=== PATIENT | female | born 1935 | race Two or more races ===

== ENCOUNTER → 2019-04-02 | Outpatient (CLI) | payer OTHER, BC | END | disposition home or self-care (01) | LOC: MRI 10:15 | DX: G30.1 Alzheimer's disease with late onset (principal) | CPT/HCPCS: 70551 ==

== ENCOUNTER 2019-10-25 15:13 | Outpatient (CLI) | payer OTHER, BC | END 2019-10-25 15:21 | disposition home or self-care (01) | LOC: RAD 15:13 → NUCLEAR 10-27 08:00 | PROVIDERS: ATTEND General Practice | DX: M79.605 Pain in left leg (principal) ==

== ENCOUNTER 2019-10-26 08:47 | Outpatient (CLI) | payer OTHER, BC | END 2019-10-26 08:56 | disposition home or self-care (01) | LOC: NUCLEAR 08:47 | PROVIDERS: ATTEND General Practice | DX: M79.605 Pain in left leg (principal); I83.021 Varicose veins of left lower extremity with ulcer of thigh; D68.8 Other specified coagulation defects; L98.8 Other specified disorders of the skin and subcutaneous tissue; I73.9 Peripheral vascular disease, unspecified ==

== ENCOUNTER 2019-10-27 08:30 | Outpatient (CLI) | payer OTHER, BC | END 2019-10-27 08:50 | disposition home or self-care (01) | LOC: NUCLEAR 08:30 | PROVIDERS: ATTEND General Practice | DX: M79.605 Pain in left leg (principal); I83.021 Varicose veins of left lower extremity with ulcer of thigh; D68.8 Other specified coagulation defects; L98.8 Other specified disorders of the skin and subcutaneous tissue ==

== ENCOUNTER 2020-10-31 00:34 | Emergency (ER) | payer OTHER, BC ==
[~2020-10-31] VITALS: Ht 162.6 cm; Wt 52.2 kg
[2020-10-31] MEDS ORDERED: ARICEPT10 MG (04:29)
== END 2020-10-31 04:40 | disposition home or self-care (01) ==
LOC: ER 00:34
DX: R53.81 Other malaise (principal); G30.8 Other Alzheimer's disease; F02.80 Dementia in other diseases classified elsewhere, unspecified severity, without behavioral disturbance, psychotic disturbance, mood disturbance, and anxiety; T65.891A Toxic effect of other specified substances, accidental (unintentional), initial encounter; Y92.89 Other specified places as the place of occurrence of the external cause

== ENCOUNTER 2020-11-12 02:04 | Emergency (ER) | payer OTHER, BC ==
[~2020-11-12] VITALS: Ht 160 cm; Wt 52.2 kg
[~2020-11-12 02:04] MED LIST: ARICEPT10 MG
== END 2020-11-12 04:24 | disposition home or self-care (01) ==
LOC: ER 02:04
DX: T65.891A Toxic effect of other specified substances, accidental (unintentional), initial encounter (principal); Y92.098 Other place in other non-institutional residence as the place of occurrence of the external cause

== ENCOUNTER 2021-11-02 17:55 | Emergency (ER) | payer OTHER, BC ==
[~2021-11-02] VITALS: Ht 160 cm; Wt 61.7 kg
[2021-11-02] MEDS ORDERED: CARDIZEM30 MG (18:20)
[2021-11-02] MEDS ORDERED: ELIQUIS2.5 MG (18:20)
== END 2021-11-03 01:46 | disposition home or self-care (01) ==
LOC: ER 17:55
DX: S70.01XA Contusion of right hip, initial encounter (principal); W18.30XA Fall on same level, unspecified, initial encounter; Y93.9 Activity, unspecified; Y92.89 Other specified places as the place of occurrence of the external cause; I10 Essential (primary) hypertension; Z91.030 Bee allergy status

== ENCOUNTER 2023-04-30 12:49 | Outpatient (CLI) | payer OTHER ==
[~2023-04-30 12:49] MED LIST changes: +CARDIZEM30 MG; +ELIQUIS2.5 MG
[2023-04-30 14:45] LABS: COL EPI 85 SECONDS (82-175)
== END 2023-04-30 12:53 | disposition home or self-care (01) ==
LOC: LAB 12:49
PROVIDERS: ATTEND Orthopaedic Surgery
DX: D68.8 Other specified coagulation defects (principal); E55.9 Vitamin D deficiency, unspecified; M85.9 Disorder of bone density and structure, unspecified; E56.1 Deficiency of vitamin K; E21.3 Hyperparathyroidism, unspecified; M81.8 Other osteoporosis without current pathological fracture; M25.552 Pain in left hip; Z91.030 Bee allergy status

== ENCOUNTER 2023-06-18 13:15 | Outpatient (CLI) | payer OTHER | END 2023-06-18 13:17 | disposition home or self-care (01) | LOC: RAD 13:15 | PROVIDERS: ATTEND Orthopaedic Surgery | DX: M25.562 Pain in left knee (principal) ==

== ENCOUNTER 2024-09-15 11:50 | Inpatient (IN) | payer OTHER ==
[~2024-09-15] VITALS: Ht 167.6 cm; Wt 68.0 kg
[2024-09-15 12:20] LABS: ABG PH 7.444 (7.35-7.45); ABG PO2 93.5 mmHg (80-100); ABG pCO2 31.6 mmHg (35-45); BASE EXCESS -1.8 mmol/l; BICARBONATE 21.2 mmol/l (23-25); SaO2 97.5 %; Tco2 22.2 mmol/l
[2024-09-15] MEDS ORDERED: TOPROL XL25 M1 PO (12:30)
[2024-09-15] MEDS ORDERED: MEMANTINE HCL E28 MG PO (12:31)
[2024-09-15] MEDS ORDERED: NITROGLYCERIN IN 5 % DEXTROSE 50 MG/250 ML BOTTLE IV STA (12:31)
[2024-09-15] MEDS ORDERED: NITROGLYCERIN IN 5 % DEXTROSE 50 MG/250 ML BOTTLE IV ONE (12:31)
[2024-09-15] MEDS ORDERED: FUROsemide 40 MG/4 ML VIAL IV STA (12:31)
[2024-09-15] MEDS ORDERED: CALCIUM CIT-VI1 EAC1 PO (12:32)
[2024-09-15] MEDS ORDERED: FUROsemide 40 MG/4 ML VIAL ONE (12:45)
[2024-09-15 13:01] LABS: HEMATOCRIT 36.8 % (36.0-45.00); HEMOGLOBIN 12.2 g/dL (12.0-15.00); MEAN CELL VOLUME 91.3 fL (80.00-100.00); MEAN CORPUSCULAR HEMOGLOBIN 30.3 pg (27.00-32.0); MEAN CORPUSCULAR HGB CONC 33.1 g/dl (32.0-36.0); PLATELET COUNT 262 K/uL (150-450); RED BLOOD COUNT 4.03 M/uL (4.00-6.00); RED CELL DISTRIBUTION WIDTH 14.7 % (11.5-14.5)
[2024-09-15 13:53] LABS: INR 1.03; PARTIAL THROMBOPLASTIN TIME 28.1 SECONDS (22.0-34.0); PROTHROMBIN TIME 11.2 SECONDS (9.0-11.5)
[2024-09-15 13:53] LABS: COVID-19 AG NEGATIVE (NEGATIVE)
[2024-09-15 13:54] LABS: INFLUENZA A AG POSITIVE (NEGATIVE)
[2024-09-15 14:18] LABS: PH,URINE 5.5 (5.0-8.0); URINE APPEARANCE Clear; URINE BILIRRUBIN Negative (NEGATIVE); URINE BLOOD Small; URINE COLOR Yellow; URINE GLUCOSE Negative (NEGATIVE); URINE KETONE Negative (NEGATIVE); URINE LEUKOCYTE Negative; URINE NITRATE Negative; URINE UROBILINOGEN 0.2 E.U./dl
[2024-09-15 14:22] LABS: URINE BACTERIA 1299.7 uL (0.0-1933); URINE CAST 2.65 uL (0.0-1.40); URINE EPITHELIAL CELLS 95.6 uL (0.0-38.8); URINE RBC 33.4 uL (0.0-20.8); URINE WBC 78.6 uL (0.0-23.2)
[2024-09-15 14:26] LABS: ALBUMIN 3.3 gm/dL (3.4-5.0); BILIRUBIN TOTAL 0.35 mg/dL (0.3-1.2); BILIRUBIN,CONJUGATED 0.11 mg/dL (0.0-0.2); BILIRUBIN,UNCONJUGATED 0.24 mg/dL (0.0-0.6); CALCIUM 8.7 mg/dL (8.5-10.1); CREATININE SERUM 1.2 mg/dL (0.55-1.02); GFR 42.3; GLOBULINA 4.1 G/DL (2.4-3.5); POTASSIUM 3.66 mEq/L (3.5-5.1); TOTAL PROTEIN 7.4 gm/dL (6.4-8.2)
[2024-09-15 15:23] LABS: URINE PROTEIN 100 (NEGATIVE)
[2024-09-15 18:52] LABS: allen test SATISFACTORY; mode NASAL CANNULA; o2 32 %; puncture site RADIAL RIGHT
[2024-09-15] MEDS ORDERED: AZITHROMYCIN 500 MG in DEXTROSE 5 % IN WATER 250 ML IV SCH (19:41)
[2024-09-15] MEDS ORDERED: FAMOTIDINE/PF 20 MG in 0.9 % SODIUM CHLORIDE 8 ML IV PUSH SCH (19:41)
[2024-09-15] MEDS ORDERED: CEFTRIAXONE SODIUM 2,000 MG in 0.9 % SODIUM CHLORIDE 100 ML IV SCH (19:41)
[2024-09-15] MEDS ORDERED: OSELTAMIVIR PHOSPHATE 75 MG CAPSULE PO SCH (19:41)
[2024-09-15] MEDS ORDERED: APIXABAN 2.5 MG TABLET PO SCH ×2 (19:42→21:00)
[2024-09-15] MEDS ORDERED: ACETAMINOPHEN 500 MG GEL..CAP PO PRN (19:45)
[2024-09-15] MEDS ORDERED: METHYLPREDNISOLONE SOD SUCC 125 MG VIAL IV ONE (19:45)
[2024-09-15] MEDS ORDERED: 0.9 % SODIUM CHLORIDE 1,000 ML IV SCH (19:45)
[2024-09-15] MEDS ORDERED: AZITHROMYCIN 500 MG VIAL IV SCH (19:48)
[2024-09-15] MEDS ORDERED: GUAIFEN/DEXTROMETHORPHAN/PE 10 ML BLIST.PACK PO SCH (20:00)
[2024-09-15] MEDS ORDERED: IPRATROPIUM BROMIDE 0.5 MG/2.5 ML AMPUL.NEB IH ONE (20:18)
[2024-09-15] MEDS ORDERED: LEVALBUTEROL HCL 1.25 MG/3 ML SOLUTION IH ONE (20:18)
[2024-09-15] MEDS ORDERED: FAMOTIDINE/PF 20 MG/2 ML VIAL ONE (20:43)
[2024-09-15] MEDS ORDERED: GUAIFEN/DEXTROMETHORPHAN/PE 10 ML BLIST.PACK PO ONE (20:43)
[2024-09-15] MEDS ORDERED: OSELTAMIVIR PHOSPHATE 75 MG CAPSULE PO ONE (20:43)
[2024-09-15] MEDS ORDERED: AZITHROMYCIN 500 MG VIAL IV ONE (20:43)
[2024-09-15] MEDS ORDERED: CEFTRIAXONE SODIUM 2,000 MG VIAL ONE (20:43)
[2024-09-15] MEDS ORDERED: METHYLPREDNISOLONE SOD SUCC 125 MG VIAL ONE (20:43)
[2024-09-15] MEDS ORDERED: LEVALBUTEROL HCL 1.25 MG/3 ML SOLUTION IH SCH (21:00)
[2024-09-15] MEDS ORDERED: IPRATROPIUM BROMIDE 0.5 MG/2.5 ML AMPUL.NEB IH SCH (21:00)
[2024-09-15 21:25] VITALS: BP 110/70
[2024-09-15 23:21] VITALS: BP 105/64; O2SAT 100
[2024-09-16] VITALS (16 sets, daily range): BP systolic 99–143; BP diastolic 53–79; O2SAT 95–100
[2024-09-16] MEDS ORDERED: LEVALBUTEROL HCL 0.63 MG/3 ML SOLUTION IH ONE (00:03)
[2024-09-16] MEDS ORDERED: IPRATROPIUM BROMIDE 0.5 MG/2.5 ML AMPUL.NEB IH ONE ×3 (00:03→00:42)
[2024-09-16] MEDS ORDERED: LEVALBUTEROL HCL 1.25 MG/3 ML SOLUTION IH ONE ×2 (00:13→00:41)
[2024-09-16] MEDS ORDERED: GUAIFEN/DEXTROMETHORPHAN/PE 10 ML BLIST.PACK PO ONE (01:45)
[2024-09-16] MEDS ORDERED: AMIODARONE HCL 50 MG/ML AMPUL IV ONE (01:45)
[2024-09-16] MEDS ORDERED: METHYLPREDNISOLONE SOD SUCC 125 MG VIAL ONE (02:53)
[2024-09-16] MEDS ORDERED: IPRATROPIUM BROMIDE 0.5 MG/2.5 ML AMPUL.NEB IH SCH (06:00)
[2024-09-16] MEDS ORDERED: AMIODARONE HCL 900 MG in DEXTROSE 5 % IN WATER 500 ML IV SCH (06:30)
[2024-09-16] MEDS ORDERED: METHIMAZOLE 10 MG TABLET PO SCH (09:00)
[2024-09-16] MEDS ORDERED: METOPROLOL SUCCINATE 25 MG TAB.SR.24H PO SCH (09:00)
[2024-09-16 12:38] LABS: ABG PH 7.424 (7.35-7.45); ABG PO2 324.5 mmHg (80-100); ABG pCO2 36.7 mmHg (35-45); BASE EXCESS -0.5 mmol/l; BICARBONATE 23.5 mmol/l (23-25); SaO2 99.9 %; Tco2 24.6 mmol/l
[2024-09-16 12:39] LABS: allen test SATISFACTORY; mode NON REBREATHING MASK; o2 100 %; puncture site RADIAL RIGHT
[2024-09-16] MEDS ORDERED: OSELTAMIVIR PHOSPHATE 75 MG CAPSULE PO ONE (15:59)
[2024-09-16] MEDS ORDERED: MEROPENEM 500 MG/VIAL VIAL IV SCH (21:00)
[2024-09-17] MEDS ORDERED: IPRATROPIUM BROMIDE 0.5 MG/2.5 ML AMPUL.NEB IH ONE (00:52)
[2024-09-17 01:30] VITALS: BP 141/68; O2SAT 100
[2024-09-17 03:37] LABS: HEMATOCRIT 32.9 % (36.0-45.00); MEAN CELL VOLUME 88.6 fL (80.00-100.00); MEAN CORPUSCULAR HEMOGLOBIN 29.9 pg (27.00-32.0); MEAN CORPUSCULAR HGB CONC 33.7 g/dl (32.0-36.0); PLATELET COUNT 251 K/uL (150-450); RED BLOOD COUNT 3.71 M/uL (4.00-6.00)
[2024-09-17 03:39] LABS: HEMOGLOBIN 11.1 g/dL (12.0-15.00)
[2024-09-17 03:54] LABS: BILIRUBIN TOTAL 0.25 mg/dL (0.3-1.2); CALCIUM 7.6 mg/dL (8.5-10.1); CREATININE SERUM 0.99 mg/dL (0.55-1.02); GFR 52.81; GLOBULINA 3.7 G/DL (2.4-3.5); MAGNESIUM 1.8 mg/dL (1.8-2.4); PHOSPHOROUS 3.1 mg/dL (2.5-4.9); POTASSIUM 3.3 mEq/L (3.5-5.1); TOTAL PROTEIN 6.7 gm/dL (6.4-8.2)
[2024-09-17 03:56] LABS: C-REACTIVE PROTEIN 1.03 MG/DL (0.00-0.29)
[2024-09-17] MEDS ORDERED: OSELTAMIVIR PHOSPHATE 30MG CAP PO SCH (05:00)
[2024-09-17 05:01] VITALS: BP 138/69; O2SAT 100
[2024-09-17 14:22] LABS: PH,URINE 5.5 (5.0-8.0); URINE APPEARANCE Turbid; URINE BILIRRUBIN Negative (NEGATIVE); URINE BLOOD Large; URINE COLOR Yellow; URINE GLUCOSE Negative (NEGATIVE); URINE KETONE Negative (NEGATIVE); URINE LEUKOCYTE Moderate; URINE NITRATE Negative; URINE PROTEIN 30 (NEGATIVE)
[2024-09-17 14:23] LABS: URINE BACTERIA 4057.5 uL (0.0-1933); URINE CAST 5.96 uL (0.0-1.40); URINE RBC 4993.1 uL (0.0-20.8); URINE WBC 483.8 uL (0.0-23.2)
[2024-09-17 15:28] LABS: URINE EPITHELIAL CELLS > 201.7 uL (0.0-38.8)
[2024-09-17 15:54] VITALS: BP 137/70; O2SAT 100
[2024-09-17 18:20] VITALS: BP 114/73; O2SAT 95
[2024-09-18 01:58] VITALS: BP 131/76; O2SAT 90
[2024-09-18] MEDS ORDERED: AZITHROMYCIN 500 MG VIAL IV ONE (08:29)
[2024-09-18 09:22] VITALS: BP 122/75; O2SAT 96
[2024-09-18] MEDS ORDERED: METHYLPREDNISOLONE SOD SUCC 40 MG VIAL IV SCH (13:00)
[2024-09-18] MEDS ORDERED: 0.9 % SODIUM CHLORIDE 10 ML VIAL IJ ONE (13:49)
[2024-09-18 16:00] VITALS: BP 149/88; O2SAT 95
[2024-09-19] VITALS (7 sets, daily range): BP systolic 134–154; BP diastolic 75–99; O2SAT 90–96
[2024-09-19 07:41] LABS: BASO % 0.3 % (0.1-1.2); HEMATOCRIT 32.5 % (34.1-44.9); HEMOGLOBIN 10.7 g/dL (11.2-15.7); LYMPH # 0.46 (1.18-3.74); LYMPH % 6.6 % (19.3-53.1); MEAN CORPUSCULAR HEMOGLOBIN 29.4 pg (25.6-32.2); MONO # 0.12 (0.24-0.82); MONO % 1.7 % (4.7-12.5); NEUT # 6.31 (1.56-6.13); NEUT % 90.5 % (34.0-71.1); PLATELET COUNT 236 K/uL (163-369); RED BLOOD COUNT 3.64 M/uL (3.93-5.22); RED CELL DISTRIBUTION WIDTH 14.1 % (11.6-14.4)
[2024-09-19] MEDS ORDERED: AZITHROMYCIN 500 MG VIAL IV ONE (07:55)
[2024-09-19 08:18] LABS: CALCIUM 7.4 mg/dL (8.5-10.1); CREATININE SERUM 0.72 mg/dL (0.55-1.02); GFR 76.27; POTASSIUM 3.53 mEq/L (3.5-5.1)
[2024-09-19 08:31] LABS: FREE TRIODOTIRONINE 0.78 pg/ml (2.18-3.98); T4 FREE 1.06 NG/ML (0.76-1.46); T4 TOTAL 7.19 UG/DL (4.8-13.9)
[2024-09-19] MEDS ORDERED: MEMANTINE HCL 10 MG TABLET PO SCH (21:00)
[2024-09-20 00:12] VITALS: O2SAT 92
[2024-09-20 00:55] VITALS: BP 138/70; O2SAT 98
[2024-09-20] MEDS ORDERED: AZITHROMYCIN 500 MG VIAL IV ONE (06:55)
[2024-09-20 08:00] VITALS: BP 143/95; O2SAT 86
[2024-09-20] MEDS ORDERED: AMIODARONE HCL 200 MG TABLET PO SCH (09:00)
[2024-09-20] MEDS ORDERED: LEVALBUTEROL HCL 0.63 MG/3 ML SOLUTION IH SCH (12:00)
[2024-09-20 17:24] VITALS: BP 147/67; O2SAT 93
[2024-09-20] MEDS ORDERED: FUROsemide 20 MG/2 ML VIAL IV NR (19:00)
[2024-09-21 00:42] VITALS: BP 124/58; O2SAT 96
[2024-09-21 08:00] VITALS: BP 143/82; O2SAT 95
[2024-09-21 09:51] VITALS: O2SAT 91
[2024-09-21 13:37] VITALS: O2SAT 90
[2024-09-21 16:00] VITALS: BP 149/85; O2SAT 95
[2024-09-21 21:00] VITALS: O2SAT 90
[2024-09-22 01:26] VITALS: BP 136/77; O2SAT 95
[2024-09-22 08:00] VITALS: BP 160/80; O2SAT 96
[2024-09-22 11:06] LABS: ABG PH 7.486 (7.35-7.45); ABG PO2 108.1 mmHg (80-100); ABG pCO2 37.5 mmHg (35-45); BASE EXCESS 4.2 mmol/l; BICARBONATE 27.7 mmol/l (23-25); SaO2 98.6 %; Tco2 28.8 mmol/l; allen test SATISFACTORY; mode NASAL CANNULA; o2 32 %; puncture site RADIAL RIGHT
[2024-09-22 12:50] LABS: BASO % 0.1 % (0.1-1.2); HEMATOCRIT 33.4 % (34.1-44.9); HEMOGLOBIN 10.8 g/dL (11.2-15.7); LYMPH # 0.55 (1.18-3.74); LYMPH % 5.2 % (19.3-53.1); MEAN CORPUSCULAR HEMOGLOBIN 29.4 pg (25.6-32.2); MONO # 0.61 (0.24-0.82); MONO % 5.7 % (4.7-12.5); NEUT # 9.15 (1.56-6.13); NEUT % 86.2 % (34.0-71.1); PLATELET COUNT 267 K/uL (163-369); RED BLOOD COUNT 3.67 M/uL (3.93-5.22); RED CELL DISTRIBUTION WIDTH 14.1 % (11.6-14.4)
[2024-09-22] MEDS ORDERED: METHYLPREDNISOLONE SOD SUCC 40 MG VIAL IV SCH (13:00)
[2024-09-22 13:18] LABS: ALBUMIN 2.9 gm/dL (3.4-5.0); ALKALINE PHOSPHATASE 57 U/L (50-136); ALT/SGPT 57 U/L (12-78); ANION GAP 8 (10.0-20.0); AST/SGOT 52 U/L (15-37); BILIRUBIN TOTAL 0.54 mg/dL (0.3-1.2); BLOOD UREA NITROGEN 33 mg/dL (7-18); BUN CREA RATIO 56 (7.0-25.0); CALCIUM 7.5 mg/dL (8.5-10.1); CARBON DIOXIDE 29 mEq/L (21-32); CHLORIDE 112 mmol/L (98-107); CREATININE SERUM 0.59 mg/dL (0.55-1.02); GFR 95.97; GLOBULINA 2.9 G/DL (2.4-3.5); GLUCOSE FASTING 137 mg/dL (65-100); OSMOLALITY SERUM 298 MOSM/KG (275-295); PHOSPHOROUS 2.2 mg/dL (2.5-4.9); SODIUM 145 mmol/L (136-145); TOTAL PROTEIN 5.8 gm/dL (6.4-8.2)
[2024-09-22 13:20] LABS: C-REACTIVE PROTEIN < 0.29 MG/DL (0.00-0.29)
[2024-09-22 17:00] VITALS: O2SAT 90
[2024-09-22 21:39] VITALS: O2SAT 90
[2024-09-23] VITALS (10 sets, daily range): BP systolic 114–155; BP diastolic 53–90; O2SAT 90–100
[2024-09-23 10:59] LABS: ABG PH 7.492 (7.35-7.45); ABG PO2 43.9 mmHg (80-100); ABG pCO2 35.3 mmHg (35-45)
[2024-09-23 11:00] LABS: BASE EXCESS 3.4 mmol/l; BICARBONATE 26.4 mmol/l (23-25); SaO2 84.4 %; Tco2 27.5 mmol/l; allen test SATISFACTORY; mode ROOM AIR; o2 21 %; puncture site RADIAL LEFT
[2024-09-23] MEDS ORDERED: DOXYCYCLINE HYCLATE 100MG IV SCH (21:00)
[2024-09-23] MEDS ORDERED: DOXYCYCLINE HYCLATE 100MG IV ONE (21:28)
[2024-09-24 01:22] VITALS: BP 172/72; O2SAT 94
[2024-09-24 01:30] VITALS: O2SAT 92
[2024-09-24 04:59] VITALS: O2SAT 90
[2024-09-24 07:23] LABS: BASO % 0.2 % (0.1-1.2); HEMATOCRIT 32.9 % (34.1-44.9); HEMOGLOBIN 10.9 g/dL (11.2-15.7); LYMPH # 0.57 (1.18-3.74); LYMPH % 5.3 % (19.3-53.1); MEAN CORPUSCULAR HEMOGLOBIN 30.3 pg (25.6-32.2); MONO # 0.56 (0.24-0.82); MONO % 5.2 % (4.7-12.5); NEUT # 9.34 (1.56-6.13); NEUT % 87.1 % (34.0-71.1); PLATELET COUNT 262 K/uL (163-369); RED CELL DISTRIBUTION WIDTH 14.3 % (11.6-14.4)
[2024-09-24 08:00] VITALS: BP 148/79; O2SAT 95
[2024-09-24 08:23] LABS: ALBUMIN 2.8 gm/dL (3.4-5.0); ALKALINE PHOSPHATASE 61 U/L (50-136); ALT/SGPT 51 U/L (12-78); ANION GAP 12 (10.0-20.0); AST/SGOT 38 U/L (15-37); BILIRUBIN TOTAL 0.43 mg/dL (0.3-1.2); BLOOD UREA NITROGEN 32 mg/dL (7-18); BUN CREA RATIO 60 (7.0-25.0); CARBON DIOXIDE 27 mEq/L (21-32); CHLORIDE 112 mmol/L (98-107); CREATININE SERUM 0.53 mg/dL (0.55-1.02); GFR 108.62; GLOBULINA 2.9 G/DL (2.4-3.5); GLUCOSE FASTING 124 mg/dL (65-100); OSMOLALITY SERUM 301 MOSM/KG (275-295); POTASSIUM 3.92 mEq/L (3.5-5.1); SODIUM 147 mmol/L (136-145); TOTAL PROTEIN 5.7 gm/dL (6.4-8.2)
[2024-09-24 08:26] LABS: C-REACTIVE PROTEIN < 0.29 MG/DL (0.00-0.29)
[2024-09-24 16:11] VITALS: O2SAT 93
[2024-09-24] MEDS ORDERED: ACETYLCYSTEINE 2,000 MG/10 ML ML IH SCH ×2 (16:29→20:00)
[2024-09-24 17:01] VITALS: BP 168/86; O2SAT 95
[2024-09-24] MEDS ORDERED: LEVALBUTEROL HCL 0.63 MG/3 ML SOLUTION IH SCH (20:00)
[2024-09-24] MEDS ORDERED: LINEZOLID IN DEXTROSE 5% 300 ML IV SCH (21:00)
[2024-09-25] VITALS (9 sets, daily range): BP systolic 126–151; BP diastolic 62–82; O2SAT 90–100
[2024-09-25] MEDS ORDERED: SODIUM CHLORIDE 0.45 % 1,000 ML IV SCH (12:00)
[2024-09-26] VITALS (9 sets, daily range): BP systolic 108–120; BP diastolic 68–75; O2SAT 90–100
[2024-09-27 01:00] VITALS: O2SAT 93
[2024-09-27 01:57] VITALS: BP 136/75; O2SAT 91
[2024-09-27 05:00] VITALS: O2SAT 90
[2024-09-27 08:00] VITALS: BP 135/90; O2SAT 92; O2SAT 96
[2024-09-27 14:12] VITALS: O2SAT 92
[2024-09-27 17:48] VITALS: O2SAT 92
[2024-09-27 17:55] LABS: ALBUMIN 2.5 gm/dL (3.4-5.0); BILIRUBIN TOTAL 1.01 mg/dL (0.3-1.2); CALCIUM 7.3 mg/dL (8.5-10.1); CREATININE SERUM 0.6 mg/dL (0.55-1.02); GFR 94.13; GLOBULINA 2.8 G/DL (2.4-3.5); MAGNESIUM 1.7 mg/dL (1.8-2.4); PHOSPHOROUS 3.4 mg/dL (2.5-4.9); POTASSIUM 3.78 mEq/L (3.5-5.1); TOTAL PROTEIN 5.3 gm/dL (6.4-8.2)
[2024-09-27 19:54] LABS: HEMOGLOBIN 12.1 g/dL (11.2-15.7); RED BLOOD COUNT 4.03 M/uL (3.93-5.22)
[2024-09-27 19:55] LABS: BASO % 0.2 % (0.1-1.2); EOS # 0.42 (0.04-0.54); EOS % 3.4 % (0.7-7.0); HEMATOCRIT 36.9 % (34.1-44.9); LYMPH # 1.66 (1.18-3.74); LYMPH % 13.5 % (19.3-53.1); MONO # 0.81 (0.24-0.82); MONO % 6.6 % (4.7-12.5); NEUT # 9.26 (1.56-6.13); NEUT % 74.9 % (34.0-71.1); PLATELET COUNT 193 K/uL (163-369)
[2024-09-28] VITALS (9 sets, daily range): BP systolic 93–125; BP diastolic 58–76; O2SAT 79–96
[2024-09-28] MEDS ORDERED: SILVER SULFADIAZINE 50 GM,NYSTATIN 30 GM,ZINC OXIDE 30 GM TOP SCH (09:00)
[2024-09-28 09:21] LABS: FREE TRIODOTIRONINE 2.19 pg/ml (2.18-3.98); T4 TOTAL 10.53 UG/DL (4.8-13.9)
[2024-09-28 09:23] LABS: TSH 0.273 uIU/mL (0.358-3.74)
[2024-09-28 09:24] LABS: T4 FREE 2.06 NG/ML (0.76-1.46)
[2024-09-28] MEDS ORDERED: METHIMAZOLE 10 MG TABLET PO STA (09:26)
[2024-09-29] VITALS (7 sets, daily range): BP systolic 113–156; BP diastolic 68–78; O2SAT 95–96
[2024-09-29] MEDS ORDERED: FAMOTIDINE/PF 20 MG in 0.9 % SODIUM CHLORIDE 100 ML IV SCH (09:00)
[2024-09-29] MEDS ORDERED: LACTOBACILLUS ACIDOPHILUS 1 CAP CAP PO SCH (09:00)
[2024-09-29] MEDS ORDERED: METHIMAZOLE 10 MG TABLET PO SCH ×2 (09:00)
[2024-09-29 09:36] LABS: ABG PH 7.484 (7.35-7.45); ABG PO2 82.1 mmHg (80-100); ABG pCO2 38.2 mmHg (35-45); BASE EXCESS 4.5 mmol/l; Tco2 29.2 mmol/l; allen test NO SATISFACTORY; mode VENTURY MASK; puncture site RADIAL RIGHT
[2024-09-29 09:37] LABS: o2 35 %
[2024-09-29 12:55] LABS: BASO % 0.2 % (0.1-1.2); EOS # 0.43 (0.04-0.54); EOS % 3.7 % (0.7-7.0); HEMOGLOBIN 10.2 g/dL (11.2-15.7); LYMPH # 1.44 (1.18-3.74); LYMPH % 12.4 % (19.3-53.1); MEAN CORPUSCULAR HEMOGLOBIN 29.5 pg (25.6-32.2); MONO # 0.97 (0.24-0.82); MONO % 8.4 % (4.7-12.5); NEUT # 8.58 (1.56-6.13); NEUT % 74.1 % (34.0-71.1); PLATELET COUNT 198 K/uL (163-369); RED BLOOD COUNT 3.46 M/uL (3.93-5.22); RED CELL DISTRIBUTION WIDTH 14.4 % (11.6-14.4)
[2024-09-30 01:33] VITALS: BP 94/62; O2SAT 96
[2024-09-30 08:00] VITALS: BP 103/69; O2SAT 93
[2024-09-30 09:33] VITALS: O2SAT 91
[2024-09-30 13:58] VITALS: O2SAT 90
== END 2024-09-30 15:37 | disposition home or self-care (01) | DRG 178 ==
LOC: ER 11:50 → ICU-2 19:43 → SURH 09-17 12:10
PROVIDERS: General Practice; Internal Medicine; Internal Medicine Endocrinology, Diabetes & Metabolism; Internal Medicine Infectious Disease; Otolaryngology; ADMIT Internal Medicine; ATTEND Internal Medicine
PROC: BB24ZZZ Computerized Tomography (CT Scan) of Bilateral Lungs (ICD-10-PCS; principal; 2024-09-15)
PROC: B246ZZZ Ultrasonography of Right and Left Heart (ICD-10-PCS; 2024-09-15)
PROC: 3E0F7GC Introduction of Other Therapeutic Substance into Respiratory Tract, Via Natural or Artificial Opening (ICD-10-PCS; 2024-09-16)
PROC: BH4CZZZ Ultrasonography of Head and Neck (ICD-10-PCS; 2024-09-17)
PROC: BG44ZZZ Ultrasonography of Thyroid Gland (ICD-10-PCS; 2024-09-17)
PROC: 4A12X4Z Monitoring of Cardiac Electrical Activity, External Approach (ICD-10-PCS; 2024-09-17)
PROC: 5A0935A Assistance with Respiratory Ventilation, Less than 24 Consecutive Hours, High Flow/Velocity Cannula (ICD-10-PCS; 2024-09-18)
PROC: BW21YZZ Computerized Tomography (CT Scan) of Abdomen and Pelvis using Other Contrast (ICD-10-PCS; 2024-09-24)
PROC: 02HV33Z Insertion of Infusion Device into Superior Vena Cava, Percutaneous Approach (ICD-10-PCS; 2024-09-27)
DX: J69.0 Pneumonitis due to inhalation of food and vomit (principal); J45.41 Moderate persistent asthma with (acute) exacerbation; N17.8 Other acute kidney failure; I48.91 Unspecified atrial fibrillation; J10.1 Influenza due to other identified influenza virus with other respiratory manifestations; I11.0 Hypertensive heart disease with heart failure; I50.9 Heart failure, unspecified; R09.02 Hypoxemia; E03.8 Other specified hypothyroidism; G30.9 Alzheimer's disease, unspecified; F02.80 Dementia in other diseases classified elsewhere, unspecified severity, without behavioral disturbance, psychotic disturbance, mood disturbance, and anxiety

== ENCOUNTER 2024-11-23 17:21 | Inpatient (IN) | payer OTHER ==
[~2024-11-23] VITALS: Ht 152.4 cm; Wt 59.0 kg
[~2024-11-23 17:21] MED LIST changes: +CALCIUM CIT-VI1 EAC1 PO; +MEMANTINE HCL E28 MG PO; +TOPROL XL25 M1 PO
[2024-11-23] MEDS ORDERED: RINGERS SOLUTION,LACTATED 1,000 ML IV STA (21:43)
[2024-11-23 22:25] LABS: BASO % 0.7 % (0.1-1.2); EOS # 0.61 (0.04-0.54); EOS % 8.1 % (0.7-7.0); LYMPH # 1.90 (1.18-3.74); LYMPH % 25.1 % (19.3-53.1); MEAN PLATELET VOLUME 10.00 fl (9.4-12.4); MONO # 0.82 (0.24-0.82); MONO % 10.8 % (4.7-12.5); NEUT # 4.16 (1.56-6.13); NEUT % 54.9 % (34.0-71.1); RED CELL DISTRIBUTION WIDTH 15.4 % (11.6-14.4)
[2024-11-23 22:34] LABS: ERYTHROCYTE SEDIMENTATION RATE 55 mm/hr (0-30)
[2024-11-23 22:43] LABS: INR 1.0
[2024-11-23 22:51] LABS: ALT/SGPT 19.0 U/L (12-78); AST/SGOT 18.0 U/L (15-37); BILIRUBIN TOTAL 0.32 mg/dL (0.3-1.2); BUN CREA RATIO 17.0 (7.0-25.0); CREATININE SERUM 0.82 mg/dL (0.55-1.02); GFR 65.64; GLOBULINA 3.8 G/DL (2.4-3.5); GLUCOSE FASTING 96.0 mg/dL (65-100); OSMOLALITY SERUM 289.0 MOSM/KG (275-295)
[2024-11-23 22:59] LABS: COVID-19 AG NEGATIVE (NEGATIVE)
[2024-11-23] MEDS ORDERED: DOXYCYCLINE HYCLATE 100MG IV SCH (23:22)
[2024-11-23] MEDS ORDERED: ONDANSETRON HCL 4 MG in 0.9 % SODIUM CHLORIDE 50 ML IV PRN (23:30)
[2024-11-23] MEDS ORDERED: 0.9 % SODIUM CHLORIDE 1,000 ML IV SCH (23:30)
[2024-11-23] MEDS ORDERED: ACETAMINOPHEN 500 MG GEL..CAP PO PRN (23:30)
[2024-11-24 08:17] VITALS: BP 119/68; O2SAT 98
[2024-11-24] MEDS ORDERED: FAMOTIDINE/PF 20 MG in 0.9 % SODIUM CHLORIDE 8 ML IV PUSH SCH (09:00)
[2024-11-24] MEDS ORDERED: DILTIAZEM HCL 30 MG TABLET PO SCH (09:00)
[2024-11-24] MEDS ORDERED: METOPROLOL SUCCINATE 25 MG TAB.SR.24H PO SCH (09:00)
[2024-11-24 16:08] VITALS: BP 121/64; O2SAT 100
[2024-11-24] MEDS ORDERED: LINEZOLID IN DEXTROSE 5% 600 MG/300 ML PIGGYBAG IV SCH (17:00)
[2024-11-24] MEDS ORDERED: DONEPEZIL HCL 10 MG TABLET PO SCH (17:00)
[2024-11-24 23:05] VITALS: BP 122/56; O2SAT 95
[2024-11-25 03:02] VITALS: BP 155/67; O2SAT 95
[2024-11-25 08:52] VITALS: BP 108/86
[2024-11-25 16:53] VITALS: BP 144/98; O2SAT 90
== END 2024-11-25 20:23 | disposition home or self-care (01) | DRG 603 ==
LOC: ER 17:21 → SEC-K 23:25 → MEDJ 11-24 15:19
PROVIDERS: ADMIT Internal Medicine; ATTEND Internal Medicine
DX: L02.213 Cutaneous abscess of chest wall (principal); L03.313 Cellulitis of chest wall; L72.3 Sebaceous cyst; G30.8 Other Alzheimer's disease; F02.C0 Dementia in other diseases classified elsewhere, severe, without behavioral disturbance, psychotic disturbance, mood disturbance, and anxiety; Z74.01 Bed confinement status